=== PATIENT | female | born 1940 | race Caucasian/White ===

== ENCOUNTER → 2017-11-19 | Outpatient (CLI) | payer MEDICARE, OTHER | END | disposition home or self-care (01) | LOC: RADPV 09:32 | PROVIDERS: ATTEND Family Medicine | DX: R91.8 Other nonspecific abnormal finding of lung field (principal); I70.0 Atherosclerosis of aorta; I51.7 Cardiomegaly | CPT/HCPCS: 71046 ==

== ENCOUNTER → 2019-05-27 | Outpatient (CLI) | payer MEDICARE, OTHER ==
[~2019-05-27] MED LIST: ACET-2744 PO; ASPI-1182 PO; COMB5OS OU; DORZ10DR18 OU; GLIP5 PO; HYDR25TA PO; LISI-660 PO; MULT-1297 PO; SIMV-259 PO; TRAVZOS OU; VERA120 PO
== END | disposition home or self-care (01) ==
LOC: RADPV 13:56
PROVIDERS: ATTEND Family Medicine
DX: M19.011 Primary osteoarthritis, right shoulder (principal); M18.11 Unilateral primary osteoarthritis of first carpometacarpal joint, right hand; M47.812 Spondylosis without myelopathy or radiculopathy, cervical region
CPT/HCPCS: 72040

== ENCOUNTER → 2024-01-12 | Outpatient (CLI) | payer MEDICARE, OTHER ==
[~2024-01-12] MED LIST changes: -ASPI-1182 PO; +ASPI-1444 PO; +BRIM5DRO28 OU; -COMB5OS OU; -GLIP5 PO; +GLIP5TAB16 PO; -HYDR25TA PO; +HYDR25TA2 PO; -LISI-660 PO; +LISI-892 PO; +TRAV2.5D7 OU; -TRAVZOS OU; -VERA120 PO; +VERA120T21 PO
== END | disposition home or self-care (01) ==
LOC: RADMN 13:40
PROVIDERS: ATTEND Family Medicine
DX: I51.7 Cardiomegaly (principal); R09.89 Other specified symptoms and signs involving the circulatory and respiratory systems; R05.3 Chronic cough; I70.0 Atherosclerosis of aorta
CPT/HCPCS: 71046